=== PATIENT | female | born 1960 | race Caucasian/White ===

== ENCOUNTER → 2019-08-21 | Outpatient (CLI) | payer MEDICARE, MEDICAID ==
[2019-08-21 13:37] LABS: ABSOLUTE BASOPHILS # (AUTO) 0.1 10^3/uL (0.0-0.2); ABSOLUTE EOSINOPHILS # (AUTO) 0.1 10^3/uL (0.0-0.6); ABSOLUTE LYMPHOCYTES (AUTO) 1.6 10^3/uL (0.5-4.7); ABSOLUTE MONOCYTES (AUTO) 0.3 10^3/uL (0.1-1.4); ABSOLUTE NEUT (AUTO) 3.6 10^3/uL (1.7-8.2); BASOPHILS % (AUTO) 1.3 % (0-2); EOSINOPHILS % (AUTO) 1.8 % (0-6); HEMATOCRIT 42.8 % (36.0-47.0); HEMOGLOBIN 14.9 g/dL (12.0-15.5); LYMPHOCYTES % (AUTO) 28.4 % (13-45); MEAN CORPUSCULAR HEMOGLOBIN 30.6 pg (27.0-33.4); MEAN CORPUSCULAR HGB CONC 34.7 g/dL (32.0-36.0); MEAN CORPUSCULAR VOLUME 88 fl (80-97); MONOCYTES % (AUTO) 4.6 % (3-13); PLATELET COUNT 218 10^3/uL (150-450); RED BLOOD COUNT 4.86 10^6/uL (3.72-5.28); RED CELL DISTRIBUTION WIDTH 13.8 % (11.5-14.0); SEGMENTED NEUTROPHILS % (AUTO) 63.9 % (42-78); TOTAL CELLS COUNTED % (AUTO) 100 %; WHITE BLOOD COUNT 5.6 10^3/uL (4.0-10.5)
[2019-08-21 13:40] LABS: APPEARANCE,URINE CLEAR; BILIRUBIN,URINE NEGATIVE (NEGATIVE); COLOR,URINE YELLOW; GLUCOSE, URINE NEGATIVE (NEGATIVE); KETONES,URINE NEGATIVE (NEGATIVE); LEUKOCYTE ESTERASE,URINE TRACE (NEGATIVE); NITRITE,URINE NEGATIVE (NEGATIVE); PROTEIN,URINE NEGATIVE (NEGATIVE); URINE SPECIFIC GRAVITY 1.005; UROBILINOGEN,URINE NEGATIVE mg/dL (<2.0)
[2019-08-21 14:00] LABS: ANION GAP 11 (5-19); BLOOD UREA NITROGEN 10 mg/dL (7-20); CALCIUM 9.6 mg/dL (8.4-10.2); CARBON DIOXIDE 27 mmol/L (22-30); CHLORIDE 87 mmol/L (98-107); GLUCOSE 81 mg/dL (75-110); POTASSIUM 4.7 mmol/L (3.6-5.0)
--- NOTE | 2019-08-21 14:48 | RADIOLOGY REPORT (SQ) ---
EXAM DESCRIPTION: CHEST PA/LATERAL COMPLETED DATE/TIME: 08/21/2019 1:13 pm REASON FOR STUDY: PRE-OP COMPARISON: 03/02/2015 EXAM PARAMETERS: NUMBER OF VIEWS: two views TECHNIQUE: Digital Frontal and Lateral radiographic views of the chest acquired. RADIATION DOSE: NA LIMITATIONS: none FINDINGS: LUNGS AND PLEURA: Large numbers of small granulomas are present throughout the lungs. No acute infiltrate, effusion, or mass. MEDIASTINUM AND HILAR STRUCTURES: No masses or contour abnormalities. HEART AND VASCULAR STRUCTURES: Heart normal size. No evidence for failure. BONES: No acute findings. HARDWARE: None in the chest. OTHER: No other significant finding. 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 No acute finding. TECHNICAL DOCUMENTATION: JOB ID: [id number] [employer]- All Rights Reserved Reading location - IP/workstation name: [email or web address]
--- NOTE | 2019-08-21 18:30 | EKG REPORT ---
SEVERITY:- BORDERLINE ECG - SINUS RHYTHM PROBABLE LEFT ATRIAL ABNORMALITY : Confirmed by: Luis Draper MD 21-Aug-2019 18:29:51
== END ==
LOC: OD 12:39
PROVIDERS: ATTEND Orthopaedic Surgery
DX: Z01.810 Encounter for preprocedural cardiovascular examination (principal); Z01.811 Encounter for preprocedural respiratory examination; Z01.812 Encounter for preprocedural laboratory examination; M17.11 Unilateral primary osteoarthritis, right knee
CPT/HCPCS: 36415; 71046; 80048; 81001; 85025; 93005; 93010

== ENCOUNTER 2019-09-01 05:25 | Day surgery (SDC) | payer MEDICARE, MEDICAID ==
[~2019-09-01 05:25] MED LIST: BUPIVACAINE INJ/PF LIPOSOME/PF 266 MG/20 ML SDV INJ PRN; CEFAZOLIN INJ 1 GM VIAL IV PRN; CLINDAMYCIN 600 MG/D5W RTU 600 MG/50 ML RTUPB IV PRN; IBUPROFEN 800 MG in NORMAL SALINE 250 ML IV PRN; LACTATED RINGERS 1000 ML IV PRN; LIDOCAINE 0.5% INJ-PF (5 MG/ML) 50 ML SDV SUBCUT PRN; OXYCODONE HCL SR 10 MG TABLET PO PRN; PANTOPRAZOLE SODIUM 20 MG TABLET.DR PO PRN; VANCOMYCIN HCL 1,000 MG in DEXTROSE 5%-WATER 250 ML IV PRN
[2019-09-01] MEDS ORDERED: OXYCODONE HCL SR 10 MG TABLET PO ONE (06:08)
[2019-09-01] MEDS ORDERED: PANTOPRAZOLE SODIUM 20 MG TABLET.DR PO ONE (06:08)
[2019-09-01] MEDS ORDERED: MIDAZOLAM 2 MG/2 ML INJ ONE (07:06)
[2019-09-01] MEDS ORDERED: PROPOFOL INJ 200 MG/20 ML VIAL IV ONE (07:06)
[2019-09-01] MEDS ORDERED: BUPIVACAINE INJ/PF LIPOSOME/PF 266 MG/20 ML SDV ONE (07:09)
[2019-09-01] MEDS ORDERED: LIDOCAINE 2% INJ-PF (20 MG/ML) 10 ML AMPUL ONE (07:18)
[2019-09-01] MEDS ORDERED: FENTANYL CITRATE INJ/PF 250 MCG/5 ML AMPULE ONE (07:18)
[2019-09-01] MEDS ORDERED: DEXMEDETOMIDINE INJ 80 MCG/20 ML VIAL IV ONE (07:19)
[2019-09-01] MEDS ORDERED: DEXAMETHASONE SOD PHOSPHATE INJ 4 MG/1 ML VIAL ONE (07:19)
[2019-09-01] MEDS ORDERED: ONDANSETRON HCL INJ/PF 4 MG/2 ML SDV ONE (07:19)
[2019-09-01] MEDS ORDERED: BUPIVACAINE INJ/PF LIPOSOME/PF 266 MG/20 ML SDV INJ ONE (07:20)
[2019-09-01] MEDS ORDERED: ONDANSETRON HCL INJ/PF 4 MG/2 ML SDV IV PRN ×2 (07:47→08:35)
[2019-09-01] MEDS ORDERED: FENTANYL CITRATE INJ/PF 100 MCG/2 ML AMPUL IV PRN ×2 (07:47)
[2019-09-01] MEDS ORDERED: DIPHENHYDRAMINE HCL 50 MG/ML VIAL IV PRN ×2 (07:47→08:35)
[2019-09-01] MEDS ORDERED: PROMETHAZINE HCL INJ 25 MG/1 ML VIAL IV PRN ×2 (07:47)
[2019-09-01] MEDS ORDERED: OXYCODONE-ACETAMINOPHEN 5-325 MG TABLET PO PRN ×2 (07:47)
[2019-09-01] MEDS ORDERED: MEPERIDINE HCL/PF INJ 25 MG/1 ML DISP.SYRIN IV PRN (07:47)
[2019-09-01] MEDS ORDERED: MORPHINE SULFATE 10 MG/ML INJ IV PRN (07:47)
[2019-09-01] MEDS ORDERED: OXYCODONE HCL IR 5 MG TABLET PO PRN (08:35)
[2019-09-01] MEDS ORDERED: RINGERS SOLUTION,LACTATED 1,000 ML IV PRN (08:35)
[2019-09-01] MEDS ORDERED: ZOLPIDEM TARTRATE 5 MG TABLET PO PRN (08:35)
[2019-09-01] MEDS ORDERED: MAG HYDROX/AL HYDROX/SIMETH SUSP 30 ML UDCUP PO PRN (08:35)
[2019-09-01] MEDS ORDERED: ONDANSETRON 4 MG TAB.RAPDIS PO PRN (08:35)
[2019-09-01] MEDS ORDERED: FUROSEMIDE 40 MG TABLET PO PRN (08:45)
--- NOTE | 2019-09-01 08:45 | Operative Report ---
Operative Report DATE OF SURGERY: 09/01/19 PREOPERATIVE DIAGNOSIS: Right knee arthritis OPERATION: Right knee arthroplasty SURGEON: CUATE RODRIGUEZ ANESTHESIA: GA TISSUE REMOVED OR ALTERED: Bone to pathology COMPLICATIONS: Venous tourniquet ESTIMATED BLOOD LOSS: 200 PROCEDURE: Implants used: Femur: Ulysses triathlon size 5 CR uncemented femur Tibia: 4 uncemented tibia Tibial liner: 11 mm CS insert Patella: 35 mm uncemented patella Procedure with the patient supine on the operating table the right the limb is prepped and draped in a sterile fashion. The limb was elevated for exsanguination and the tourniquet inflated to 280 torr. A standard midline median parapatellar approach the knee is taken. Access is gained to the femoral canal through the intercondylar notch. Intramedullary alignment instrumentation used to resect 10 mm of distal femur in 5 of valgus. Sizing guide indicated a size 5 femur. Appropriate cutting jig is then used to fashion anterior posterior and chamfer cuts. A trial reduction femurs performed and this is judged to be adequate. Attention was next turned to the tibia. Using an extra medullary alignment system 9 millimeters was resected off the role tibial plateau. This is sized to a size 4 tibia. A trial reduction was now performed with a 5 femur and a 4 tibia using a 11 millimeters spacer. It is full extension and central patellofemoral tracking. The articular surface the patella was next resected using an oscillating saw. All trial implants were removed. Polymethylmethacrylate is mixed and used to cement the above implants in place. On adequate curing the cement excess cement was removed the tourniquet was deflated hemostasis obtained the wound is then closed in layers using interrupted Vicryl followed by jasper. A sterile compressive dressing was applied and the patient returned to recovery room in satisfactory condition.
[2019-09-01] MEDS ORDERED: TRANEXAMIC ACID INJ/PF 1,000 MG/10 ML SDV ONE (09:06)
[2019-09-01] MEDS ORDERED: FENTANYL CITRATE INJ/PF 100 MCG/2 ML AMPUL ONE (09:20)
[2019-09-01] MEDS: FENTANYL CITRATE INJ/PF 100 MCG/2 ML AMPUL IV PRN ×2 (09:20→09:30)
--- NOTE | 2019-09-01 09:40 | RADIOLOGY REPORT (SQ) ---
EXAM DESCRIPTION: KNEE RIGHT 2 VIEWS COMPLETED DATE/TIME: 09/01/2019 9:26 am REASON FOR STUDY: Post OP -Long Cassette in PACU [id number] PAIN IN RIGHT KNEE COMPARISON: None. NUMBER OF VIEWS: Two view(s). TECHNIQUE: Digital radiographic images of the right knee post-procedure. LIMITATIONS: None. FINDINGS: BONES: No worrisome or unexpected findings post-procedure. DEVICE: Total knee arthroplasty. SOFT TISSUES: No worrisome findings. Expected postoperative soft tissue changes. IMPRESSION: SATISFACTORY POSTOPERATIVE RIGHT KNEE. TECHNICAL DOCUMENTATION: JOB ID: [id number] [employer] All Rights Reserved Reading location - IP/workstation name: [email or web address]
[2019-09-01] MEDS ORDERED: FLUTICASONE/VILANTEROL 100-25 MCG/DOSE IH SCH (10:00)
[2019-09-01] MEDS ORDERED: (PENDING PHARMACY ID) (Lisinopril/Hydrochlorothiazide [Lisinopril-Hctz 20-25 Mg Tab] 1 TAB PO SCH (10:00)
[2019-09-01] MEDS ORDERED: BUPRENORPHINE HCL 150 MCG SL SCH (10:00)
[2019-09-01] MEDS ORDERED: (PENDING PHARMACY ID) (Fluticasone/Salmeterol 1 PUFF) IH SCH (10:00)
[2019-09-01] MEDS: ACETAMINOPHEN 325 MG TABLET PO PRN ×2 (11:57→15:55)
[2019-09-01] MEDS ORDERED: TRANEXAMIC ACID INJ/PF 1,000 MG/10 ML SDV IV ONE (12:00)
[2019-09-01] MEDS ORDERED: NEOSTIGMINE METHYLSULFATE 10 MG/10 ML VIAL ONE (12:33)
[2019-09-01] MEDS ORDERED: GLYCOPYRROLATE 1 MG/5 ML VIAL ONE (12:33)
[2019-09-01] MEDS: CARBAMAZEPINE 100 MG TAB.CHEW PO SCH ×2 (14:14→22:31)
[2019-09-01] MEDS: GABAPENTIN 300 MG CAPSULE PO SCH ×2 (14:14→22:27)
[2019-09-01] MEDS: TIZANIDINE HCL 4 MG TABLET PO SCH ×2 (14:14→22:30)
[2019-09-01] MEDS: IBUPROFEN 800 MG in NORMAL SALINE 250 ML IV SCH ×2 (15:55→22:26)
[2019-09-01] MEDS ORDERED: ASPIRIN 81 MG TABLET, ENT COATED PO SCH (18:00)
[2019-09-01] MEDS: SENNOSIDES/DOCUSATE 8.6-50 MG 1 EACH TABLET PO SCH (18:20)
[2019-09-01] MEDS: OXYCODONE HCL SR 10 MG TABLET PO SCH (18:20)
[2019-09-01] MEDS ORDERED: VANCOMYCIN HCL 1,000 MG in DEXTROSE 5%-WATER 250 ML IV ONE (21:00)
[2019-09-01] MEDS ORDERED: DULOXETINE HCL 120 MG PO SCH (22:00)
[2019-09-01] MEDS ORDERED: CARBIDOPA/LEVODOPA 25-100 MG TABLET PO SCH (22:00)
[2019-09-01] MEDS ORDERED: DULOXETINE HCL 30 MG CAPSULE.DR PO SCH (22:00)
[2019-09-02] MEDS: TIZANIDINE HCL 4 MG TABLET PO SCH (05:06)
[2019-09-02] MEDS: CARBAMAZEPINE 100 MG TAB.CHEW PO SCH (05:06)
[2019-09-02] MEDS: IBUPROFEN 800 MG in NORMAL SALINE 250 ML IV SCH (05:07)
[2019-09-02] MEDS: OXYCODONE HCL SR 10 MG TABLET PO SCH (05:07)
[2019-09-02] MEDS: GABAPENTIN 300 MG CAPSULE PO SCH (05:07)
[2019-09-02] MEDS ORDERED: PANTOPRAZOLE SODIUM 40 MG TABLET.DR PO SCH (06:00)
[2019-09-02 06:12] LABS: HEMATOCRIT 29.6 % (36.0-47.0); HEMOGLOBIN 10.5 g/dL (12.0-15.5); MEAN CORPUSCULAR HGB CONC 35.4 g/dL (32.0-36.0); MEAN CORPUSCULAR VOLUME 88 fl (80-97); PLATELET COUNT 163 10^3/uL (150-450); RED BLOOD COUNT 3.37 10^6/uL (3.72-5.28); RED CELL DISTRIBUTION WIDTH 13.4 % (11.5-14.0); WHITE BLOOD COUNT 6.2 10^3/uL (4.0-10.5)
[2019-09-02 06:36] LABS: ANION GAP 6 (5-19); BLOOD UREA NITROGEN 14 mg/dL (7-20); CALCIUM 8.7 mg/dL (8.4-10.2); CARBON DIOXIDE 27 mmol/L (22-30); CHLORIDE 97 mmol/L (98-107); GLUCOSE 82 mg/dL (75-110); POTASSIUM 3.9 mmol/L (3.6-5.0)
--- NOTE | 2019-09-02 06:55 | PDOC DISCHARGE SUMMARY ---
Impression - Admit/DC Date/PCP Admission Date/Primary Care Provider: AFSANEH COUCH Discharge Date: 09/02/19 - Discharge Diagnosis (1) Arthritis of right knee Is this a current diagnosis for this admission?: Yes - Additional Information Resuscitation Status: Full Code Discharge Diet: Regular Discharge Activity: Activity As Tolerated, Balance Activity w/Rest, No tub bath Referrals: CUATE RODRIGUEZ MD [ACTIVE STAFF] - 09/10/19 1:15 pm Home Medications: Carbidopa/Levodopa [Sinemet 25-100 mg Tablet] 1 tab PO QHS 03/29/13 Omeprazole 40 mg PO DAILY 03/29/13 Oxybutynin Chloride 5 mg PO BID 09/09/13 Lisinopril/Hydrochlorothiazide [Lisinopril-Hctz 20-25 mg Tab] 1 tab PO DAILY 09/10/13 Meloxicam [Mobic 7.5 Mg Tablet] 7.5 mg PO BID 01/25/14 Tizanidine HCl [Zanaflex 4 Mg Tablet] 4 mg PO TID 01/25/14 Tramadol HCl [Ultram] 150 mg PO QHS 01/25/14 Albuterol Sulfate [Ventolin Hfa 8 gm Mdi (1 Mdi/ER Disp)] 1 - 2 puff IN PRN PRN 08/18/19 Buprenorphine HCl [Belbuca] 150 mcg SL BID 08/18/19 Carbamazepine [Tegretol 100 mg Chewable Tablet] 100 mg PO TID 08/18/19 Duloxetine HCl 120 mg PO QHS 08/18/19 Fluticasone/Salmeterol [Advair 100-50 Diskus 14 Dose/Diskus] 1 puff IN DAILY 08/18/19 Furosemide [Lasix 20 mg Tablet] 40 mg PO QAMP PRN 08/18/19 Gabapentin 600 mg PO TID 08/18/19 Hydrocodone/Acetaminophen [Sharon 7.5-325 Tablet] 1 tab PO QID 08/18/19 Linaclotide [Linzess 145 Mcg Capsule] 145 mcg PO DAILY 08/18/19 Oxymetazoline HCl [Nasal Orlando] 1 spray NAREB PRN PRN 08/18/19 Thyroid (Pork) [[place] Thyroid 60 mg Tablet] 60 mg PO QAM 08/18/19 Fluticasone Propionate [Flonase Nasal Orlando 50 Mcg/[place] 16 gm] 1 spray IN DAILY 08/28/19 History of Present Illiness History of Present Illness: SARMAD TRAN is a 58 year old female Patient is a 58-year-old white female with progressive right knee pain and functional disability second osteoarthritis. Patient is admitted for elective right knee arthroplasty. Hospital Course Hospital Course: Patient is admitted through the operating room where she undergoes an uncomplicated right knee arthroplasty. She is returned to floor in satisfactory condition. She ambulates 350 feet with physical therapy on the day of surgery. Physical Exam Vital Signs: Temp Pulse Resp BP Pulse Ox 36.9 C 66 18 130/52 H 96 09/02/19 00:58 09/02/19 00:58 09/02/19 00:58 09/02/19 00:58 09/02/19 00:58 Intake & Output 08/31/19 09/01/19 09/02/19 06:59 06:59 06:59 Intake Total 250 4610 Output Total 2750 Balance 250 1860 Weight 95.2 kg General appearance: PRESENT: no acute distress, obese, well-developed, well- nourished Head exam: PRESENT: normocephalic Respiratory exam: PRESENT: unlabored Cardiovascular exam: PRESENT: RRR Pulses: PRESENT: +1 pedal pulses bilateral Vascular exam: PRESENT: normal capillary refill GI/Abdominal exam: PRESENT: soft Rectal exam: PRESENT: deferred Musculoskeletal exam: PRESENT: other - Compressive right knee dressing is removed on the first postoperative. Underlying OpSite seen has a small spot proximally which seems to be an active. There is minimal pedal edema. Distal neurovascular examination is intact. Neurological exam: PRESENT: alert, awake, oriented to person, oriented to place, oriented to time, oriented to situation. ABSENT: motor sensory deficit Psychiatric exam: PRESENT: appropriate affect, normal mood. ABSENT: homicidal ideation, suicidal ideation Skin exam: PRESENT: dry, intact, warm. ABSENT: cyanosis, rash Results Laboratory Results: WBC 6.2 10^3/uL (4.0-10.5) 09/02/19 05:50 RBC 3.37 10^6/uL (3.72-5.28) L 09/02/19 05:50 Hgb 10.5 g/dL (12.0-15.5) L 09/02/19 05:50 Hct 29.6 % (36.0-47.0) L 09/02/19 05:50 MCV 88 fl (80-97) 09/02/19 05:50 MCH 31.0 pg (27.0-33.4) 09/02/19 05:50 MCHC 35.4 g/dL (32.0-36.0) 09/02/19 05:50 RDW 13.4 % (11.5-14.0) 09/02/19 05:50 Plt Count 163 10^3/uL (150-450) 09/02/19 05:50 Sodium 129.9 mmol/L (137-145) L 09/02/19 05:50 Potassium 3.9 mmol/L (3.6-5.0) 09/02/19 05:50 Chloride 97 mmol/L (98-107) L 09/02/19 05:50 Carbon Dioxide 27 mmol/L (22-30) 09/02/19 05:50 Anion Gap 6 (5-19) 09/02/19 05:50 BUN 14 mg/dL (7-20) 09/02/19 05:50 Creatinine 0.78 mg/dL (0.52-1.25) 09/02/19 05:50 Est GFR ( Amer) > 60 (>60) 09/02/19 05:50 Est GFR (MDRD) Non-Af > 60 (>60) 09/02/19 05:50 Glucose 82 mg/dL (75-110) 09/02/19 05:50 Calcium 8.7 mg/dL (8.4-10.2) 09/02/19 05:50 Impressions: Knee X-Ray 09/01/19 08:37 IMPRESSION: SATISFACTORY POSTOPERATIVE RIGHT KNEE. Plan Plan of Treatment: Patient to be discharged home with home health services and DME on a weightbearing as tolerated basis. Follow-up with Dr. Rodriguez in 2 weeks for staple removal. Time Spent: Less than 30 Minutes Stroke Is this a Stroke Patient?: No Stroke Pt being discharged on Anti-thrombolytic therapy?: Yes Acute Heart Failure - Is this a Heart Failure Patient?: No
[2019-09-02] MEDS ORDERED: THYROID 60 MG PO SCH (08:00)
[2019-09-02 08:53] VITALS: BP 106/52
[2019-09-02] MEDS: SENNOSIDES/DOCUSATE 8.6-50 MG 1 EACH TABLET PO SCH (09:10)
[2019-09-02] MEDS ORDERED: HYDROCHLOROTHIAZIDE 25 MG TABLET PO SCH (10:00)
[2019-09-02] MEDS ORDERED: LISINOPRIL 10 MG TABLET PO SCH (10:00)
[2019-09-02] MEDS ORDERED: PRENATAL VITAMIN W DHA CAPSULE PO SCH (10:00)
[2019-09-02] MEDS ORDERED: (PENDING PHARMACY ID) (Linaclotide 145 MCG) PO SCH (10:00)
== END 2019-09-02 09:45 | disposition home or self-care (01) ==
LOC: OROUT 05:25 → EDSTATUS 07:30 → 4S 11:04 → OROUT 09-02 09:45
PROVIDERS: ATTEND Orthopaedic Surgery
DX: M17.11 Unilateral primary osteoarthritis, right knee (principal); M25.561 Pain in right knee; Z79.899 Other long term (current) drug therapy; Z88.0 Allergy status to penicillin; Z79.51 Long term (current) use of inhaled steroids; F17.210 Nicotine dependence, cigarettes, uncomplicated; I10 Essential (primary) hypertension; E03.9 Hypothyroidism, unspecified; N32.81 Overactive bladder; Z86.14 Personal history of Methicillin resistant Staphylococcus aureus infection; J44.9 Chronic obstructive pulmonary disease, unspecified; M79.7 Fibromyalgia; E66.3 Overweight
CPT/HCPCS: 36415; 84132; 85027; 80048; 88305 ×2; 88311; 73560; 94799 ×2; 97530; 97110 ×2; 97116 ×2; 97163; 01402; 27447; A9270 ×21; J2250; J1100; J3010 ×2; J2710; J2405; J7060; J7050 ×2; J2704; J3370; J3490 ×4; C9290; J1741 ×2; C1776